=== PATIENT | male | born 1970 | race Caucasian/White ===

== ENCOUNTER → 2021-07-23 08:14 | Day surgery (SDC) | payer OTHER, SELFPAY ==
[2021-07-23 08:25] VITALS: BMI 24.4
== END ==
PROVIDERS: PCP Family Medicine; Visit Provider Internal Medicine
DX: Z53.9 Procedure and treatment not carried out, unspecified reason (principal)

== ENCOUNTER → 2021-10-01 07:19 | Outpatient (CLI) | payer OTHER, SELFPAY ==
[2021-10-01 07:31] LABS: Basophils # 0.1 K/mm3 (0-0.2); Basophils % 1.1 % (0.1-2.0); Eosinophils # 0.3 K/mm3 (0.0-0.4); Eosinophils % 3.1 % (0.1-12.0); Lymphocytes # 3.6 K/mm3 (0.7-4.5); Lymphocytes % 43.1 % (10-50); Mean Corpuscular HGB Conc 31.6 g/dL (31.8-35.4); Mean Corpuscular Volume 101.3 fl (80-94); Mean Platelet Volume 9.1 fl (7.4-10.4); Monocytes # 0.4 K/mm3 (0.1-1.0); Monocytes % 4.6 % (1.7-9.3); Neutrophils % 48.1 % (37.0-80.0); Platelet Count 307 K/mm3 (142-424); Red Blood Count 4.05 M/mm3 (4.60-6.20); Red Cell Distribution Width 14.1 % (11.5-17.5); White Blood Count 8.4 K/mm3 (4.8-10.8)
[2021-10-01 08:35] LABS: Anion Gap 10.4 mEq/L (5-15); Blood Urea Nitrogen 19 mg/dl (9-20); Calcium 9.6 mg/dl (8.4-10.2); Carbon Dioxide 29 mmol/L (22.0-30.0); Chloride 104 mmol/L (98-107); Estimated Glomerular Filt Rate 71 ml/min (>60); GFR (African American) 86 ML/MIN (>60); Glucose 169 mg/dl (74-100); Potassium 5.4 mmoL/L (3.5-5.1); Sodium 138 mmol/L (136-145)
== END ==
PROVIDERS: Urology; Visit Provider Internal Medicine
DX: Z01.812 Encounter for preprocedural laboratory examination (principal); Z11.52 Encounter for screening for COVID-19; R00.1 Bradycardia, unspecified; I73.9 Peripheral vascular disease, unspecified; R09.89 Other specified symptoms and signs involving the circulatory and respiratory systems; R20.0 Anesthesia of skin; R20.2 Paresthesia of skin; R20.9 Unspecified disturbances of skin sensation; R68.89 Other general symptoms and signs; E11.42 Type 2 diabetes mellitus with diabetic polyneuropathy; F17.200 Nicotine dependence, unspecified, uncomplicated; Z79.84 Long term (current) use of oral hypoglycemic drugs
CPT/HCPCS: 36415; 80048; 85025; C9803; U0003; U0005

== ENCOUNTER 2021-10-03 08:09 | Day surgery (SDC) | payer OTHER, SELFPAY ==
[2021-10-03] VITALS (58 sets, daily range): BP systolic 97–190; BP diastolic 52–96; PULSE 54–90; RESP 16–20; TEMP 36.8; O2SAT 97–100; BMI 26.3
--- NOTE | 2021-10-03 07:12 | IR_ITS ---
APPROVED REPORT Patient Location: Outpatient Pipe Finishing Supervisor: LORRI Cedillo RT (R) PROCEDURES Right femoral arterial access Right retrograde femoral angiogram Catheter placed in the abdominal aorta Abdominal aortography Repositioning the catheter in the abdominal aorta Bilateral iliofemoral runoff Left femoral arterial access Left retrograde femoral angiogram Bare-metal stent deployment in the right common iliac artery extending into the right external iliac artery with 2 contiguous bare-metal stents Bare-metal stent deployment to the distal left common iliac artery extending into the proximal left external iliac artery INDICATION [place] claudication class III, Peripheral artery disease, Abnormal RANDI, Atherosclerotic disease in the right common and external iliac artery, Atherosclerotic disease in the left common and external iliac artery Informed consent was obtained prior to the procedure. COMPLICATIONS NONE Estimated Blood Loss: LESS THAN 10 ML TECHNIQUE 1% lidocaine used anesthetize the right groin the right femoral was accessed via the Salinger technique and a 5 Irish sheath was placed in the right femoral artery. Because the wire would not easily traverse the iliofemoral arteries angiography in a retrograde manner was performed. An advantage wire was then used to advance through the stenosis. The pigtail catheter was advanced and abdominal aortography was performed. The catheter was then repositioned and bilateral lower femoral neck was performed. At this point 1% lidocaine was used anesthetize the left groin and the left femoral was accessed via the Salinger technique. Therapeutic heparin was administered giving a therapeutic ACT. After the 6 Irish sheath was placed a rim catheter was advanced into the distal abdominal aorta where an 8 mm x 57 mm bare-metal stent was placed in the very proximal portion of the right common iliac artery extending distally. This was deployed at 14 kristian. An additional 8 mm x 37 mm bare-metal stent was then placed distal to the first stent yet still overlapping the first stent and deployed at 12 kristian with the balloon advanced and then deployed at 14 kristian. Excellent angiographic results were obtained. Following this an 8 mm x 27 mm balloon mounted stent was then deployed at 12 kristian in the left common iliac artery extending into the left proximal external iliac artery. Excellent angiographic results were obtained. After achieving excellent angiographic results the apparatus was removed the left groin was reprepped gloves were changed sheath was removed and hemostasis was achieved using Perclose device patient was transferred to the postop holding area in stable condition for right groin sheath removal ANGIOGRAPHIC RESULTS The distal abdominal aorta is calcified with 20% distal stenosis. The right common iliac artery has an ostial 40% stenosis with a proximal 70% stenosis followed by 30% stenoses and an additional greater than 50% stenosis in the proximal portion of the right external iliac artery. The right internal iliac artery is patent. The right common femoral artery has a 40% stenosis at the insertion site. The right profunda femoris artery is widely patent and collateralizes distally into the right popliteal artery. The right superficial femoral artery is proximally subtotally occluded and then completely occludes in the mid segment and then reconstitutes at the popliteal level. The popliteal artery is a small caliber vessel with mid vessel 30% stenoses and then gives rise to the anterior and posterior tibialis arteries which are patent. There appears to be single-vessel runoff into the right foot via the posterior tibialis artery
--- NOTE | 2021-10-03 09:50 | CA_ITS ---
APPROVED REPORT EXAM: Comprehensive 2D, Doppler, and color-flow Echocardiogram Mobile Application Architect: Paige Oseguera, RT(R) Ht: 6 ft 0 in Wt: 194lbs BSA: 2.10 BP: 117/68 mmHg Indications: SOB, claudication, smoker, abn RANDI, patient had angio of bilateral LE's, patient supine on back and unable to roll over due to recent angio. Limited images 2D Dimensions Aortic Root 2.01 cm M: 3.1 - 3.7 M-Mode Dimensions RVDd 1.96 cm (0.9-2.6) LVDd 3.72 cm (3.5-5.7) LVDs 2.86 cm (3.5-5.7) IVSd 0.68 cm (0.6-1.1) PWd 0.82 cm (0.6-1.1) EF (Teich) 47.20% FS 23.10% EDV (Teich) 58.90 mL ESV (Teich) 31.10 mL LV Diastology E Decel Time 243.00 (160-240 msec) E/A Ratio 1.02 MED E' 9.70 (< 7 cm/sec) E'/MED E' Ratio 8.23 (>14) LAT E' 10.60 (<10 cm/sec) E/LAT E' Ratio 7.53 (>14) Mitral Valve MV A Velocity 79.00 (40-130 cm/s) E/A Ratio 1.02 MV Decel. Time 243.00 (160-240 ms) Left Ventricle Left atrium is normal size, left ventricle is normal size, visually estimated ejection 55% with no regional wall motion abnormality, diastolic parameters are inconclusive. Right Ventricle Right atrium and right ventricle are normal size and contractility. Aortic Valve Aortic valve is minimally thickened and fibrosed, there is no aortic stenosis or aortic insufficiency. Mitral Valve Mitral valve is grossly normal, there is trace mitral regurgitation. Tricuspid Valve Tricuspid grossly normal, there is trace tricuspid regurgitation, tricuspid regurgitation jet velocity is inadequate for calculation of the right ventricular systolic pressure. Pulmonic Valve Pulmonic valve is poorly visualized. Great Vessels Aortic root is normal size. Inferior vena cava is normal size with normal inspiratory collapse. Pericardium No significant pericardial effusion noted. Conclusion 1. Normal left ventricular size, preserved left ventricular systolic function, visually estimated ejection fraction 55% with no regional wall motion abnormality, diastolic parameters are inconclusive in the study. 2. Trace mitral and tricuspid regurgitation. 3. No significant pericardial effusion noted. 4. Inferior vena cava is normal size with normal inspiratory collapse. Electronically signed by : Bradley Lassiter MD 10/04/2021 14:52:15
[2021-10-03 14:28] LABS: CATHL Activated Clotting Time 248 SEC (74-125)
[2021-10-03 14:37] LABS: CATHL Activated Clotting Time 162 SEC (74-125)
[2021-10-03 14:38] LABS: CATHL Activated Clotting Time 230 SEC (74-125)
[2021-10-03 14:39] LABS: CATHL Activated Clotting Time 240 SEC (74-125)
--- NOTE | 2021-10-03 15:26 | HMH.PHACLD ---
Francisco Chatman has received discharge medication counseling on the following medications: PATIENT STARTED ON PLAVIX 75 MG DAILY, ATORVASTATIN 40 MG HS, ASPIRIN EC 81 MG DAILY, AND XARELTO 2.5 MG BID. PATIENT IS CURRENTLY TAKING LISINOPRIL 2.5 MG DAILY. MD NOT STARTING BETA PABLO AT THIS TIME-PERIPHERAL STENTING.
--- NOTE | 2021-10-03 18:48 | PC.NURSE ---
Sand bag removed at 1700, no more active bleeding. area soft and tender upon palpation. VSS. Pt is anxiously awaiting time of discharge. No other acute changes or complaints, will continue to monitor.
--- NOTE | 2021-10-03 21:49 | PC.NURSE ---
PT WAS D/C AT 9918
== END 2021-10-03 21:49 | disposition home or self-care (01) ==
LOC: CATHLAB 08:10 → 2ND 15:16
PROVIDERS: PCP Family Medicine; Visit Provider Internal Medicine
DX: E11.51 Type 2 diabetes mellitus with diabetic peripheral angiopathy without gangrene (principal); F17.210 Nicotine dependence, cigarettes, uncomplicated; I77.1 Stricture of artery
CPT/HCPCS: 37221; 85347; 93306; 99152; 99153; C1725; C1760; C1769; C1876; C1894; J1644; J2720; Q9966

== ENCOUNTER → 2021-10-23 10:49 | Outpatient (CLI) | payer OTHER, SELFPAY ==
--- NOTE | 2021-10-23 | CA_ITS ---
APPROVED REPORT Grazing Examiner: Paige Oseguera, RT(R) Indications Patient had lower extremity angio runoffs 10/03/21 with stents placed. Presents today with extensive bruising in the left groin. Denies palpable knot and states not tender. Risk Factors History of Lower Extremity PAD: CAD Cardiac Disease Current Smoker Findings Groin: Left Negative Measurements Rt. SFA (Prox) Lt. SFA (Prox) 66.8/ cm/s Findings No evidence of pseudoaneurysm, hematoma, or AV fistula of the left groin. Conclusion No evidence of pseudoaneurysm, hematoma, or AV fistula of the left groin. Electronically signed by : Sanjay Fan MD 10/24/2021 07:00:05
[2021-10-23 11:15] LABS: Basophils # 0.1 K/mm3 (0-0.2); Basophils % 1.1 % (0.1-2.0); Eosinophils # 0.3 K/mm3 (0.0-0.4); Hematocrit 33.3 % (42.0-52.0); Hemoglobin 11.4 g/dL (14.1-18.0); Lymphocytes % 30.4 % (10-50); Mean Corpuscular HGB Conc 34.2 g/dL (31.8-35.4); Mean Corpuscular Hemoglobin 32.3 pg (27.0-31.2); Mean Corpuscular Volume 94.5 fl (80-94); Mean Platelet Volume 8.8 fl (7.4-10.4); Monocytes # 0.3 K/mm3 (0.1-1.0); Monocytes % 4.6 % (1.7-9.3); Neutrophils # 3.8 K/mm3 (1.8-7.8); Neutrophils % 58.9 % (37.0-80.0); Platelet Count 353 K/mm3 (142-424); Red Blood Count 3.52 M/mm3 (4.60-6.20); White Blood Count 6.4 K/mm3 (4.8-10.8)
[2021-10-23 11:23] LABS: Chloride 103 mmol/L (98-107)
[2021-10-23 11:24] LABS: Potassium 5.8 mmoL/L (3.5-5.1); Sodium 137 mmol/L (136-145)
[2021-10-23 11:27] LABS: Anion Gap 12.8 mEq/L (5-15); Blood Urea Nitrogen 34 mg/dl (9-20); Calcium 10.4 mg/dl (8.4-10.2); Carbon Dioxide 27 mmol/L (22.0-30.0); Estimated Glomerular Filt Rate 59 ml/min (>60); GFR (African American) 71 ML/MIN (>60); Glucose 130 mg/dl (74-100)
[2021-10-23 14:15] LABS: Vitamin B12 574 pg/mL (239-931)
[2021-10-23 14:19] LABS: Folate 7.93 ng/mL
== END ==
PROVIDERS: Physician Assistant; PCP Family Medicine; Visit Provider Internal Medicine
DX: D53.9 Nutritional anemia, unspecified (principal)
CPT/HCPCS: 36415; 80048; 82607; 82746; 85025; 93926

== ENCOUNTER → 2021-10-25 07:55 | Outpatient (CLI) | payer OTHER, SELFPAY ==
--- NOTE | 2021-10-25 | CA_ITS ---
APPROVED REPORT Exam: Pharmacologic Technologist: Regina Hill, Ht: 6 ft 0 in Wt: 192 lbs BSA: 2.09 m2 HR: 51 bpm BP: 139/51 mmHg Medical History Medications: Aspirin,,,,, Metformin,,,,, Gabapentin,,,,, Atorvastatin,,,,, Pioglitazone,,,,, CloPIdogrel,,,,, RIvaROXABAN,,,,, Stress Test Details Test: LEXISCAN HR Resting HR: 53 bpm Max Heart Rate (APMHR): 171.325712 bpm Max HR Achieved: 109 bpm Target HR (85% APMHR): 145.648646 bpm % of APMHR: 63.74 Recovery HR: 61 bpm BP Resting BP: 139/51 mmHg Max BP: 174/64 mmHg Recovery BP: 155.0/72.0 mmHg ECG Resting ECG: sinus jeannine, otherwise normal Clinical Exercise duration: 04:00 min Highest Stage Achieved: Exercise capacity: 1.0 METs Stress ECG Conclusion 1 minute: SOA 2-3 minute: SOA, nausea, head feels woozy 4minute: N/V. SOA resolved Recovery 1 minute: Aminophylline 100mg slow IV given. Recovery 3 minute: Feels better, no more N/V. Rocovery 7 minute: Side effects gone. Symptoms: Mild chest pressure, SOA, N/V, head discomfort. Arrhythmias/Ectopy: None. ST-T Changes: 1-1.5mm horizontal ST depression inferiorly and 1mm laterally. Conclusion: EKG changes suggesting ischemia with mild CP. Myoview images reported separately. Electronically signed by : Bradley Lassiter MD 10/26/2021 09:10:31
--- NOTE | 2021-10-25 07:55 | NM_ITS ---
APPROVED REPORT Exam: Nuclear Stress Test Indication: sob..carotid bruits..tobacco user Patient Location: Outpatient Stress Tech: Regina WEST Tech:LORRI Garcia RT(R)(N) Ht: 6 ft 0 in Wt: 192 lbs HR: 53 bpm BP: 139/51 mmHg BSA: 2.09 m2 History: sob..carotid bruits..tobacco user Procedure: Patient received a 0.4 mg of intravenous Lexiscan, resting heart rate 53 bpm, resting blood pressure 139/51 mmHg, with Lexiscan maximum heart rate achived was 109 bpm which is Less than 85 % of the maximum predicted heart rate and blood pressure was 174/64 mmHg. With Lexiscan, patient denied any complaint of chest pain. pt is unable to lay on belly for prone pictures Electrocardiogram Resting electrocardiogram shows sinus rhythm, with Lexiscan there is [address] segment depression noted from the baseline EKG. The EKG portion of the Lexiscan is positive for ischemia. Cardiac Stress and Resting SPECT Images: Cardiac Stress and Resting SPECT images were obtained using technetium 99m Myoview 32.9 mCi stress and 10.29 mCi at rest. Gated SPECT for analysis of segmental wall motion and calculation of the ejection fraction also done. Cardiac stress and resting SPECT images show moderate sized partially reversible defect involving the inferior wall, computer derived ejection fraction is 47% with moderate inferior wall hypokinesis, right ventricle is normal size and contractility. Conclusion: 1. The EKG portion of the Lexiscan Myoview is positive for ischemia. 2. Scintigraphic evidence of mixed ischemia and scar involving the inferior wall as described above, computer derived ejection fraction 47% with segmental wall motion abnormality involving the inferior wall which is moderately hypokinetic. Right ventricle is normal size and contractility. 3. Abnormal Lexiscan Myoview study. Electronically signed by : Bradley Lassiter MD 10/26/2021 09:13:22
--- NOTE | 2021-10-25 09:24 | CA_ITS ---
APPROVED REPORT Aerosol Supervisor: Mayte Naranjo RVT Laterality: Bilateral Study Quality: Good Indications: bruit,dizziness Risk Factors Smoking Doppler Spectral Velocity Analysis ECA (R) 159.30/8.60 cm/s ECA (L) 75.90/8.60 cm/s dICA (R) 109.10/26.70 cm/s dICA (L) 109.10/34.20 cm/s Kary (R) 103.70/22.50 cm/s Kary (L) 83.40/23.50 cm/s pICA (R) 92.00/18.20 cm/s pICA (L) 95.20/25.70 cm/s dCCA (R) 94.10/17.10 cm/s dCCA (L) 83.40/22.50 cm/s pCCA (R) 123.00/16.00 cm/s pCCA (L) 103.70/22.50 cm/s Vert (R) 56.70/13.90 cm/s Vert (L) 118.70/28.90 cm/s ICA/CCA 1.16 ICA/CCA 1.31 Findings Study suggests 20-49% stenosis of the right internal cartoid artery. Study suggests 20-49% stenosis of the left internal cartoid artery. Antegrade flow seen bilateral vertebral arteries. Lymph nodes noted in right and left neck. Conclusion Study suggests 20-49% stenosis of the right internal cartoid artery. Study suggests 20-49% stenosis of the left internal cartoid artery. Antegrade flow seen bilateral vertebral arteries. Lymph nodes noted in right and left neck. Electronically signed by : Sanjay Fan MD 10/25/2021 17:45:15
== END ==
PROVIDERS: PCP Family Medicine; Visit Provider Nurse Practitioner Family
DX: E11.9 Type 2 diabetes mellitus without complications (principal); F17.200 Nicotine dependence, unspecified, uncomplicated; I73.9 Peripheral vascular disease, unspecified; R06.00 Dyspnea, unspecified; R09.89 Other specified symptoms and signs involving the circulatory and respiratory systems; R20.0 Anesthesia of skin; R20.2 Paresthesia of skin; R68.89 Other general symptoms and signs; Z79.84 Long term (current) use of oral hypoglycemic drugs
CPT/HCPCS: 78452; 93017; 93880; A9502; J0280; J2785

== ENCOUNTER → 2021-11-06 12:58 | Outpatient (CLI) | payer OTHER, SELFPAY ==
[2021-11-06 13:14] LABS: Basophils # 0.1 K/mm3 (0-0.2); Basophils % 0.8 % (0.1-2.0); Eosinophils # 0.3 K/mm3 (0.0-0.4); Hematocrit 34.5 % (42.0-52.0); Hemoglobin 11.5 g/dL (14.1-18.0); Lymphocytes # 2.3 K/mm3 (0.7-4.5); Lymphocytes % 28.7 % (10-50); Mean Corpuscular HGB Conc 33.2 g/dL (31.8-35.4); Mean Corpuscular Hemoglobin 32.4 pg (27.0-31.2); Mean Corpuscular Volume 97.7 fl (80-94); Mean Platelet Volume 7.9 fl (7.4-10.4); Monocytes # 0.3 K/mm3 (0.1-1.0); Monocytes % 3.7 % (1.7-9.3); Neutrophils # 5.1 K/mm3 (1.8-7.8); Neutrophils % 62.8 % (37.0-80.0); Platelet Count 274 K/mm3 (142-424); Red Blood Count 3.53 M/mm3 (4.60-6.20); White Blood Count 8.1 K/mm3 (4.8-10.8)
[2021-11-06 14:27] LABS: Anion Gap 10.2 mEq/L (5-15); Blood Urea Nitrogen 25 mg/dl (9-20); Calcium 9.5 mg/dl (8.4-10.2); Carbon Dioxide 29 mmol/L (22.0-30.0); Chloride 103 mmol/L (98-107); Estimated Glomerular Filt Rate 79 ml/min (>60); GFR (African American) 96 ML/MIN (>60); Glucose 205 mg/dl (74-100); Potassium 4.2 mmoL/L (3.5-5.1); Sodium 138 mmol/L (136-145)
== END ==
PROVIDERS: Visit Provider Physician Assistant
DX: I20.8 Other forms of angina pectoris (principal); Z01.812 Encounter for preprocedural laboratory examination; Z11.52 Encounter for screening for COVID-19; R06.00 Dyspnea, unspecified; R00.1 Bradycardia, unspecified; E11.42 Type 2 diabetes mellitus with diabetic polyneuropathy; I10 Essential (primary) hypertension; R94.39 Abnormal result of other cardiovascular function study; I73.9 Peripheral vascular disease, unspecified; F17.200 Nicotine dependence, unspecified, uncomplicated; Z79.84 Long term (current) use of oral hypoglycemic drugs
CPT/HCPCS: 80048; 85025; C9803; U0003; U0005

== ENCOUNTER 2021-11-09 08:42 | Day surgery (SDC) | payer OTHER, SELFPAY ==
[2021-11-09] VITALS (13 sets, daily range): BP systolic 98–190; BP diastolic 59–90; PULSE 45–87; RESP 16–19; TEMP 36.8; O2SAT 96–100; BMI 26.6
--- NOTE | 2021-11-09 07:12 | IR_ITS ---
APPROVED REPORT Patient Location: Outpatient Infertility Nurse: LORRI Cedillo RT (R) PROCEDURES Left heart catheterization Left ventriculogram Selective coronary angiogram Intravascular ultrasound to the LAD and left main artery Informed consent was obtained prior to the procedure. COMPLICATIONS NONE Estimated Blood Loss: LESS THAN 10 ML TECHNIQUE One percent lidocaine used to anesthetize the right anterior aspect of the wrist. The right radial artery was accessed via the Seldinger technique. A 6 [place]ian sheath was placed in the right radial artery. 2.5 mg of verapamil, 800 mcg of nitroglycerin, 1mg Lidocaine and 5000 U Heparin were given through the arterial sheath. The [place] catheter was also used to perform left heart catheterization, left ventriculogram and selective coronary angiogram. At the end the diagnostic angiogram therapeutic heparin was administered giving a therapeutic ACT and a Choice PT floppy wire was placed in the circumflex artery and a Choice PT extra-support wire placed in the LAD. Intravascular ultrasound probe was advanced. The proximal LAD had an MLA of 4.8 mm??? while the distal left main artery had an MLA of 4.6 m???. At the end of the procedure the apparatus was removed the sheath was removed and hemostasis was achieved using TR banding patient was transferred to the postop already in stable addition ANGIOGRAPHIC RESULTS The left main artery Has an ostial 30% stenosis in the distal 60 to 70% stenosis The left anterior descending artery Has an ostial proximal 40% stenosis and long diffuse 30 to 40% mid vessel stenoses The circumflex artery Is a nondominant vessel and has a proximal 40% stenosis with long tubular smooth 30 to 40% stenosis throughout the proximal to mid obtuse marginal artery The right coronary artery Is a dominant vessel has proximal 30% stenosis followed by proximal eccentric 60% stenosis followed by a mid vessel concentric 70 to 80% stenosis. The posterior descending artery has a mid vessel 80% stenosis while the posterior lateral branch has distal 80 to 90% stenoses The [place] ventriculogram reveals Dilated ventricle ejection fraction 45% The left ventricular end-diastolic pressure 20 mmHg IMPRESSION I would like to ask cardiothoracic surgeon to review the films and discuss surgical revascularization options with the patient. My tentative recommendation would be bypass surgery however given the distal nature of the right coronary artery disease if the surgeon feels percutaneous revascularization would be more appropriate I would then be glad to proceed with multivessel stenting. LDL less than 55 Immediate avoidance of tobacco products Aggressive risk factor modification Maximize antianginal medications Electronically signed by : Gunnar Dejesus MD 11/09/2021 11:04:33
== END 2021-11-09 14:11 | disposition home or self-care (01) ==
LOC: CATHLAB 08:43
PROVIDERS: PCP Family Medicine; Visit Provider Internal Medicine
DX: I25.118 Atherosclerotic heart disease of native coronary artery with other forms of angina pectoris (principal); E11.42 Type 2 diabetes mellitus with diabetic polyneuropathy; F17.210 Nicotine dependence, cigarettes, uncomplicated; I73.9 Peripheral vascular disease, unspecified; R00.1 Bradycardia, unspecified; Z79.01 Long term (current) use of anticoagulants; Z79.02 Long term (current) use of antithrombotics/antiplatelets; Z79.84 Long term (current) use of oral hypoglycemic drugs
CPT/HCPCS: 92978; 93458; 99152; 99153; C1725; C1769; J1644; Q9967

== ENCOUNTER → 2022-03-27 13:56 | Outpatient (CLI) | payer OTHER, SELFPAY ==
--- NOTE | 2022-03-27 14:03 | XR_ITS ---
FINAL REPORT CLINICAL HISTORY: chest pain, fall FINDINGS: Two views of the chest were obtained. There are postoperative changes from prior median sternotomy. The heart size and pulmonary vascularity are within normal limits. The mediastinum is normal. There is mild scarring or atelectatic in the right lung base. There is no pneumothorax. The bony thorax is intact. IMPRESSION: Mild right base scarring or atelectasis. Reviewed, Interpreted and Dictated by Axel Mijares III, MD Transcribed by Sd Hernandez Authenticated by Axel Mijares III, MD on 03/27/2022 03:19:00 PM [facility]
== END ==
PROVIDERS: PCP Family Medicine; Visit Provider Nurse Practitioner Family
DX: R06.00 Dyspnea, unspecified (principal); R07.9 Chest pain, unspecified; I25.10 Atherosclerotic heart disease of native coronary artery without angina pectoris; E11.9 Type 2 diabetes mellitus without complications; E78.5 Hyperlipidemia, unspecified; W19.XXXA Unspecified fall, initial encounter; Z79.84 Long term (current) use of oral hypoglycemic drugs
CPT/HCPCS: 71046

== ENCOUNTER → 2022-03-29 10:20 | Outpatient (CLI) | payer OTHER, SELFPAY ==
--- NOTE | 2022-03-29 10:25 | CA_ITS ---
APPROVED REPORT EXAM: Comprehensive 2D, Doppler, and color-flow Echocardiogram Surgical Rn: Parvin Sawyer RDCS Ht: 6 ft 0 in Wt: 198lbs BSA: 2.12 BP: 126/73 mmHg Indications: BRADYCARDIA,CAD,CABG 2D Dimensions LVOT 2.04 cm (M/F) 1.5-2.5 M-Mode Dimensions RVDd 2.57 cm (0.9-2.6) LA Diam 4.04 cm (1.9-4.0) LVDd 4.58 cm (3.5-5.7) Ao Diam 3.96 cm (2.0-3.7) LVDs 3.42 cm (3.5-5.7) IVSd 0.92 cm (0.6-1.1) PWd 0.80 cm (0.6-1.1) EF (Teich) 50.10% FS 25.30% EDV (Teich) 96.30 mL ESV (Teich) 48.10 mL LV Diastology E Decel Time 170.00 (160-240 msec) E/A Ratio 2.0 MED E' 6.50 (< 7 cm/sec) E'/MED E' Ratio 13.68 (>14) LAT E' 9.60 (<10 cm/sec) E/LAT E' Ratio 9.26 (>14) Mitral Valve MV E Max Jose. 89.00 (40-130 cm/s) MV A Velocity 45.00 (40-130 cm/s) E/A Ratio 1.98 MV Decel. Time 170.00 (160-240 ms) MV PHT 50.00 ms Left Ventricle Left atrium is mildly enlarged, left ventricle normal size, mild concentric left ventricular hypertrophy, estimated ejection fraction 55% with no regional wall motion abnormality, there is abnormal septal motion. Right Ventricle Right atrium and right ventricle are normal size and contractility. Aortic Valve Aortic valve is minimally thickened and fibrosed there is no aortic stenosis or aortic insufficiency. Mitral Valve Mitral valve grossly normal, there is trace mitral regurgitation Tricuspid Valve Tricuspid grossly normal, there is trace tricuspid regurgitation, tricuspid regurgitation jet velocity is inadequate for calculation of the right ventricular systolic pressure. Pulmonic Valve Pulmonic valve is poorly visualized. Great Vessels Aortic root is normal size. Inferior vena cava normal size with normal inspiratory collapse. Pericardium No significant pericardial effusion noted. Conclusion 1. Normal left ventricular size, preserved left ventricular systolic function, estimated ejection fraction 55%, there is abnormal septal motion. Diastolic parameters are inconclusive. 2. Trace mitral and tricuspid regurgitation. 3. No significant pericardial effusion. 4. Inferior vena cava is normal size with normal spectral collapse. Electronically signed by : Bradley Lassiter MD 03/29/2022 13:07:02
== END ==
PROVIDERS: PCP Family Medicine; Visit Provider Nurse Practitioner Family
DX: I25.10 Atherosclerotic heart disease of native coronary artery without angina pectoris (principal); R06.00 Dyspnea, unspecified; R07.9 Chest pain, unspecified; E11.9 Type 2 diabetes mellitus without complications; E78.5 Hyperlipidemia, unspecified; W19.XXXA Unspecified fall, initial encounter; Z79.84 Long term (current) use of oral hypoglycemic drugs
CPT/HCPCS: 93306

== ENCOUNTER → 2022-06-06 14:16 | Outpatient (CLI) | payer OTHER, SELFPAY ==
[2022-06-06 14:40] LABS: Basophils # 0.2 K/mm3 (0-0.2); Basophils % 1.9 % (0.1-2.0); Eosinophils # 0.3 K/mm3 (0.0-0.4); Eosinophils % 4.3 % (0.1-12.0); Hematocrit 43.2 % (42.0-52.0); Hemoglobin 13.8 g/dL (14.1-18.0); Lymphocytes # 3.3 K/mm3 (0.7-4.5); Lymphocytes % 41.9 % (10-50); Mean Corpuscular HGB Conc 31.8 g/dL (31.8-35.4); Mean Corpuscular Hemoglobin 31.3 pg (27.0-31.2); Mean Corpuscular Volume 98.3 fl (80-94); Monocytes # 0.4 K/mm3 (0.1-1.0); Monocytes % 4.9 % (1.7-9.3); Neutrophils # 3.7 K/mm3 (1.8-7.8); Neutrophils % 47.1 % (37.0-80.0); Platelet Count 270 K/mm3 (142-424); Red Cell Distribution Width 17.4 % (11.5-17.5); White Blood Count 7.9 K/mm3 (4.8-10.8)
[2022-06-06 14:55] LABS: Chloride 105 mmol/L (98-107); Sodium 139 mmol/L (136-145)
[2022-06-06 14:57] LABS: Blood Urea Nitrogen 25 mg/dl (9-20); Estimated Glomerular Filt Rate 46 ml/min (>60); GFR (African American) 56 ML/MIN (>60)
[2022-06-06 14:58] LABS: Alanine Aminotransferase 15 U/L (12-78); Alkaline Phosphatase 78 U/L (38-126); Anion Gap 9.6 mEq/L (5-15); Aspartate Amino Transferase 23 U/L (17-59); Bilirubin,Direct 0.1 mg/dl (0.0-0.4); Bilirubin,Indirect 0.4 mg/dL (0.0-0.9); Bilirubin,Total 0.5 mg/dl (0.2-1.3); Bilirubin,Unconjugated 0.4 mg/dL (0.0-1.1); Calcium 9.7 mg/dl (8.4-10.2); Carbon Dioxide 29 mmol/L (22.0-30.0); Cholesterol 149 mg/dl (140-200); Glucose 118 mg/dl (74-100); Potassium 4.6 mmoL/L (3.5-5.1); Triglycerides 99 mg/dl (30-150); VLDL Cholesterol 20 mg/dL (0-40)
[2022-06-06 14:59] LABS: Magnesium 1.7 mg/dl (1.6-2.3)
[2022-06-06 15:01] LABS: Albumin Level 4.4 g/dl (3.5-5.0); Total Protein,Serum 6.7 g/dl (6.3-8.2)
[2022-06-06 15:02] LABS: Chol/HDL Ratio 2.3 (1-3.5); HDL Cholesterol 64 mg/dl (40-60)
[2022-06-06 15:11] LABS: Direct LDL Cholesterol 56.92 mg/dL (100-129)
[2022-06-06 15:28] LABS: Thyroid Stimulating Hormone 5.81 uIU/mL (0.465-4.68)
== END ==
PROVIDERS: PCP Family Medicine; Visit Provider Nurse Practitioner
DX: R06.09 Other forms of dyspnea (principal); I20.8 Other forms of angina pectoris; E11.42 Type 2 diabetes mellitus with diabetic polyneuropathy; E78.2 Mixed hyperlipidemia; I73.9 Peripheral vascular disease, unspecified; F17.200 Nicotine dependence, unspecified, uncomplicated; Z95.1 Presence of aortocoronary bypass graft; Z79.84 Long term (current) use of oral hypoglycemic drugs
CPT/HCPCS: 36415; 80048; 80061; 80076; 83735; 84439; 84443; 85025

== ENCOUNTER → 2023-03-26 09:01 | Outpatient (CLI) | payer OTHER, SELFPAY ==
--- NOTE | 2023-03-26 09:05 | XR_ITS ---
FINAL REPORT CLINICAL HISTORY: lt Foot Pain FINDINGS: Left foot Three views were obtained. There is no acute fracture or dislocation. The joint spaces appear normal. No soft tissue abnormality is identified. IMPRESSION: No acute process. Reviewed, Interpreted and Dictated by Saji Angel MD Transcribed by Guillermina Faust Authenticated and [facility]
[2023-03-26 09:39] LABS: Basophils # 0.1 K/mm3 (0-0.2); Basophils % 0.6 % (0.1-2.0); Eosinophils # 0.2 K/mm3 (0.0-0.4); Eosinophils % 1.6 % (0.1-12.0); Hematocrit 45.1 % (42.0-52.0); Hemoglobin 14.6 g/dL (14.1-18.0); Lymphocytes # 4.3 K/mm3 (0.7-4.5); Lymphocytes % 45.4 % (10-50); Mean Corpuscular HGB Conc 32.2 g/dL (31.8-35.4); Mean Corpuscular Hemoglobin 31.7 pg (27.0-31.2); Mean Corpuscular Volume 98.3 fl (80-94); Mean Platelet Volume 8.4 fl (7.4-10.4); Monocytes # 0.3 K/mm3 (0.1-1.0); Monocytes % 3.1 % (1.7-9.3); Neutrophils # 4.6 K/mm3 (1.8-7.8); Neutrophils % 49.3 % (37.0-80.0); Platelet Count 244 K/mm3 (142-424); Red Blood Count 4.59 M/mm3 (4.60-6.20); Red Cell Distribution Width 13.7 % (11.5-17.5); White Blood Count 9.4 K/mm3 (4.8-10.8)
[2023-03-26 10:00] LABS: Chloride 97 mmol/L (98-107); Sodium 136 mmol/L (136-145)
[2023-03-26 10:01] LABS: Potassium 4.4 mmoL/L (3.5-5.1)
[2023-03-26 10:03] LABS: Alanine Aminotransferase 17 U/L (12-78); Albumin Level 4.4 g/dl (3.5-5.0); Albumin/Globulin Ratio 2.1 (1.1-1.8); Alkaline Phosphatase 73 U/L (38-126); Anion Gap 15.4 mEq/L (5-15); Aspartate Amino Transferase 22 U/L (17-59); Bilirubin,Total 0.8 mg/dl (0.2-1.3); Blood Urea Nitrogen 22 mg/dl (9-20); Carbon Dioxide 28 mmol/L (22.0-30.0); Estimated Glomerular Filt Rate 71 ml/min (>60); GFR (African American) 85 ML/MIN (>60); Globulin 2.1 g/dL (1.3-3.2); Total Protein,Serum 6.5 g/dl (6.3-8.2)
[2023-03-26 10:04] LABS: Calcium 9.5 mg/dl (8.4-10.2); Glucose 212 mg/dl (74-100)
[2023-03-26 10:05] LABS: Erythrocyte Sedimentation Rate 3 mm/hr (0-20)
[2023-03-26 10:09] LABS: C-Reactive Protein 0.3 mg/L (0-4)
== END ==
PROVIDERS: PCP Family Medicine; Visit Provider Nurse Practitioner Family
DX: M79.672 Pain in left foot (principal); L60.0 Ingrowing nail
CPT/HCPCS: 36415; 73630; 80053; 85025; 85651; 86140

== ENCOUNTER 2023-09-11 13:04 | Observation (INO) | payer OTHER, SELFPAY ==
[2023-09-11] VITALS (43 sets, daily range): BP systolic 117–190; BP diastolic 45–86; PULSE 45–63; RESP 16–20; TEMP 36.3–36.7; O2SAT 96–100; BMI 25.4
--- NOTE | 2023-09-11 07:09 | IR_ITS ---
APPROVED REPORT Patient Location: Outpatient Abstractor: LORRI Snyder RT (R) PROCEDURES Left heart catheterization Left ventriculogram Selective coronary angiogram Selective engagement of the left internal mammary artery to the LAD Selective engagement of the saphenous vein graft to the obtuse marginal artery Selective engagement of saphenous vein graft to the right coronary arteries posterior descending artery Intravascular lithotripsy to the mid and distal dominant right coronary artery supplying a large unbypassed posterior lateral ventricular branch INDICATION Coronary artery disease, History of coronary bypass surgery, Accelerated angina pectoris, Informed consent was obtained prior to the procedure. COMPLICATIONS None Estimated Blood Loss: Less than 10 ml TECHNIQUE One percent lidocaine used to anesthetize the right groin. The right femoral artery was accessed via the Seldinger technique and a 5 Armenian sheath was placed in the right femoral artery. A JL 4, JR4 catheter were used to perform left heart catheterization, left ventriculogram selective coronary angiography as well as selective engagement of the 2 vein grafts and the left internal mammary artery. At the end of the diagnostic angiogram therapeutic Was administered giving a therapeutic ACT and the 5 Armenian sheath was exchanged for 6 Armenian sheath. A CARSON catheter with sideholes was used to intubate the right coronary followed by Choice PT extra-support wire. A 2.5 x 12 mm shockwave lithotripsy balloon was deployed at 4, 6, 10 kristian for the full 80 pulsations reducing the stenosis. Two 2.75 x 38 mm [place] stents were placed in the ostial proximal mid and distal segment in a contiguous manner and initially deployed at 20 kristian followed by 22 and then 24 kristian to post dilate. Excellent angiographic results were obtained with SYLVESTER-3 flow being present before and after the procedure. At the end of the procedure there was excellent inline flow to a large posterior lateral ventricular branch which was not receiving retrograde filling from the posterior descending artery. At the end the procedure the apparatus was removed the sheath was taped into place patient was transferred to the postop holding in stable condition ANGIOGRAPHIC RESULTS The left main artery Is an ostial 30% stenosis and a distal 10% stenosis The left anterior descending artery Is proximally patent with 30% stenoses and then occluded at mid vessel. The circumflex artery Is nondominant gives rise to small to medium size ramus intermedius which is patent. The circumflex artery itself has 70 to 80% stenosis supplying the terminal obtuse marginal artery. The terminal obtuse marginal artery is less than 2 mm in diameter The right coronary artery Is a dominant vessel and has proximal 70% stenosis with a mid vessel calcified 80 to 90% stenosis. This supplies a large posterior lateral branch with no identifiable competitive flow from the vein graft supplying the posterior descending artery The BA[place]IST[place] ventriculogram reveals Preserved at 55% The left ventricular end-diastolic pressure 10 mmHg CARSON to LAD patent Saphenous to small obtuse marginal artery patent Saphenous to posterior descending arteries patent. There is no retrograde filling of the [place] right coronary artery or posterior lateral branch as the proximal posterior descending artery is occluded IMPRESSION Large unbypassed posterior lateral ventricular branch which was not receiving retrograde filling from the vein graft supplying the posterior descending artery Successful intravascular lithotripsy to the mid and distal dominant right coronary artery with successful drug-eluting stenting to the ostial proximal mid and distal right coronary providing inline flow to a l
[2023-09-11 08:23] LABS: Basophils # 0.1 K/mm3 (0-0.2); Basophils % 0.7 % (0.1-2.0); Eosinophils # 0.2 K/mm3 (0.0-0.4); Eosinophils % 2.1 % (0.1-12.0); Hematocrit 43.5 % (42.0-52.0); Hemoglobin 14.9 g/dL (14.1-18.0); Lymphocytes # 4.2 K/mm3 (0.7-4.5); Mean Corpuscular HGB Conc 34.4 g/dL (31.8-35.4); Mean Corpuscular Hemoglobin 34.5 pg (27.0-31.2); Mean Corpuscular Volume 100.3 fl (80-94); Mean Platelet Volume 8.5 fl (7.4-10.4); Monocytes # 0.2 K/mm3 (0.1-1.0); Monocytes % 2.5 % (1.7-9.3); Neutrophils # 3.2 K/mm3 (1.8-7.8); Neutrophils % 40.7 % (37.0-80.0); Platelet Count 219 K/mm3 (142-424); Red Blood Count 4.33 M/mm3 (4.60-6.20); Red Cell Distribution Width 13.9 % (11.5-17.5); White Blood Count 7.8 K/mm3 (4.8-10.8)
[2023-09-11 08:25] LABS: Chloride 104 mmol/L (98-107)
[2023-09-11 08:26] LABS: Potassium 4.4 mmoL/L (3.5-5.1); Sodium 138 mmol/L (136-145)
[2023-09-11 08:27] LABS: MANUAL DIFFERENTIAL MANUAL DIFFERENTIAL (MANUAL DIFF)
[2023-09-11 08:29] LABS: Anion Gap 8.4 mEq/L (5-15); Blood Urea Nitrogen 23 mg/dl (9-20); Calcium 9.1 mg/dl (8.4-10.2); Carbon Dioxide 30 mmol/L (22.0-30.0); Creatinine Clearance Estimated 105 mL/min (50-200); Estimated Glomerular Filt Rate 79 ml/min (>60); GFR (African American) 95 ML/MIN (>60); Glucose 223 mg/dl (74-100)
[2023-09-11 08:40] LABS: Eosinophils % 1 % (0-3); Lymphocytes % 47 % (10-50); Monocytes % 1 % (2-9); Neutrophils % 48 % (42-76); Total Cells Counted 100
[2023-09-11 08:41] LABS: Macrocytosis 1+; Platelet Estimate Normal; RBC Morphology Normal
[2023-09-11 14:04] LABS: CATHL Activated Clotting Time 186 SEC (74-125)
[2023-09-11 14:05] LABS: CATHL Activated Clotting Time 323 SEC (74-125)
--- NOTE | 2023-09-11 14:23 | HMH.PHAINT1 ---
Pharmacy Intervention Comments: MEDICATION RECONCILIATION COMPLETED ON PATIENT USING EXTERNAL FILL HISTORY FROM PHARMACY. -SEE LOPEZ, SANIYAD
--- NOTE | 2023-09-11 17:22 | EXP.HP ---
History of Present Illness *Admission Date: 09/11/23 *Reason for visit:: b/l arm heaviness *History of present illness: Patient is a 52-year-old male with past medical history of diabetes mellitus, CAD, status post CABG who presents to the from [facility] today for bilateral arm heaviness. According the patient he also had numbness in his right thumb. Patient mentions he had cardiac catheterization performed today, he was noted to have significant coronary artery disease as well as peripheral arterial disease. Patient was recommended for overnight admission. Patient denied fever chills nausea vomiting diarrhea constipation dysuria PFSH [facility] Disclaimer: The information contained in this section may have been updated after the patient was seen, as this information can be updated by other users. Medical History (Updated 09/11/23 @ 13:24 by Candace Rockwell RN) Abnormal ankle brachial index (RANDI) Abnormal cardiovascular stress test Atypical angina Chest pain Claudication Diabetes mellitus, type II Fall Sinus bradycardia Tobacco dependence syndrome Family History Other No significant family history Social History Smoking Status: Current every day smoker tobacco type: cigarettes packs per day: 1 alcohol intake: never current occupational status: employed Travel in the last 8 weeks: Inside the [place] household members: significant other housing: house current occupational exposures/hazards: No Review of Systems Review of Systems Review of systems (narrative): as per [facility] Meds Home Medications and Allergies Home Medications Medication Instructions Recorded Confirmed Type gabapentin 600 mg tablet 600 mg PO TID nerve pain 09/24/21 09/11/23 History aspirin 81 mg chewable tablet 81 mg PO DAILY Heart Health 10/03/21 09/11/23 History metformin 500 mg tablet 500 mg PO BIDWMEAL Diabetes 02/25/22 09/11/23 History nicotine 14 mg/24 hr daily 1 patch topical DAILY Smoking 02/25/22 09/11/23 History transdermal patch Cessation pioglitazone 30 mg tablet 30 mg PO DAILY Diabetes 02/25/22 09/11/23 History atorvastatin 40 mg tablet 40 mg PO HS Cholesterol 09/11/23 09/11/23 History carvedilol 3.125 mg tablet 3.125 mg PO BID High Blood Pressure 09/11/23 09/11/23 History clopidogrel 75 mg tablet (Plavix) 75 mg PO DAILY #30 tabs 09/11/23 Rx empagliflozin 25 mg tablet 25 mg PO DAILY Diabetes 09/11/23 09/11/23 History insulin glargine 100 unit/mL (3 10 unit SQ DAILY Diabetes 09/11/23 09/11/23 History mL) subcutaneous pen nitroglycerin 0.4 mg sublingual 0.4 mg sublingual Q5MINP PRN chest 09/11/23 09/11/23 History tablet (Nitrostat) pain rivaroxaban 2.5 mg tablet (Xarelto) 2.5 mg PO BIDWMEAL Blood Thinner 09/11/23 09/11/23 History New Prescriptions to Start Prescriptions: clopidogrel [Plavix] Gunnar Dejesus Allergies Allergy/AdvReac Type Severity Reaction Status Date / Time No Known Allergies Allergy Verified 09/11/23 08:17 Exam Data for Last 24 hours Vital signs and Labs for Last 24 Hours: Temp Pulse Resp BP Pulse Ox O2 Del Method 97.4 F L 51 L 16 168/77 H 100 Room Air 09/11/23 13:37 09/11/23 13:55 09/11/23 13:55 09/11/23 13:55 09/11/23 13:55 09/11/23 13:55 Laboratory Results - last 24 hr 09/11/23 08:00: WBC 7.8, RBC 4.33 L, Hgb 14.9, Hct 43.5, MCV 100.3 H, MCH 34.5 H, MCHC 34.4, RDW 13.9, Plt Count 219, MPV 8.5, Neut % (Auto) 40.7, Lymph % (Auto) 54.0 H, [place] % (Auto) 2.5, Eos % (Auto) 2.1, Baso % (Auto) 0.7, Neut # (Auto) 3.2, Lymph # (Auto) 4.2, [place] # (Auto) 0.2, Eos # (Auto) 0.2, Baso # (Auto) 0.1, Total Counted 100, Neutrophils % (Manual) 48, Band Neutrophils % 3.0, Lymphocytes % (Manual) 47, Monocytes % (Manual) 1 L, Eosinophils % (Manual) 1, Platelet Estimate Normal, RBC Morphology Normal, Macrocytosis 1+, Sodium 138, Potassium 4.4, Chloride
--- NOTE | 2023-09-11 19:02 | PC.NURSE ---
VS [id number] Documented by myself for A CINDY Pringle
--- NOTE | 2023-09-11 19:06 | PC.NURSE ---
Yana WARD'd per written order from [facility]
[2023-09-11 20:26] LABS: POC Glucose,Bedside 214 (70-110)
[2023-09-12] VITALS: BP 131/69; PULSE 54; PULSE 60; RESP 17; TEMP 36.8; O2SAT 97
--- NOTE | 2023-09-12 03:50 | PC.NURSE ---
HAS RESTED WELL. NO C/O SOA, CP, OR DISCOMFORT. DRSG TO RIGHT GROIN C/D/I.
[2023-09-12 04:00] VITALS: BP 104/63; PULSE 47; PULSE 63; RESP 17; TEMP 36.9; O2SAT 99; BMI 25.4
--- NOTE | 2023-09-12 04:03 | PC.NURSE ---
S/P LEFT CARDIAC CATHETERIZATION, STENTS X 2. DENIES CP, SOA, OR DISCOMFOT.
[2023-09-12 05:07] LABS: POC Glucose,Bedside 205 (70-110)
[2023-09-12 08:00] VITALS: BP 125/64; PULSE 58; PULSE 60; RESP 18; TEMP 36.9; O2SAT 100
--- NOTE | 2023-09-12 10:04 | PC.NURSE ---
SPOKE WITH PATIENT ABOUT MORNING MEDICATIONS. PATIENT STATES THAT CARDIOLOGY INSTRUCTED HIM TO HOLD CERTAIN MEDICATIONS AND HE WOULD LIKE TO WAIT FOR CARDIOLOGY TO ROUND BEFORE HE TAKES ANY ORDERED MEDICATIONS.
--- NOTE | 2023-09-12 10:56 | EXP.CARD.PN ---
Subjective Subjective Date: 09/12/23 Time: 10:45 Principal diagnosis: CAD s/p stenting Interval history: This is a 52-year-old gentleman who came into the hospital for outpatient left cardiac catheterization and was kept overnight for observation. The patient had a large unbypassed posterior lateral ventricular branch that was not receiving retrograde filling from the vein graft supplying the PDA. The patient had successful intravascular lithotripsy to the mid and distal dominant right coronary artery with successful stenting to the ostial proximal mid and distal right coronary artery providing inflow and flow to the large posterior lateral branch with 2 stents. The patient had a patent CARSON patent saphenous vein graft to the obtuse marginal artery and patent vein graft to the posterior descending artery. The patient had extensive PAD so he had to have a manual pull of his sheath. The patient stayed for observation due to his aggressive vascular disease. This morning he denies any chest pain or pressure. He states that when he woke up from his procedure he immediately felt much better. He denies any shortness of breath or edema. He denies any fever, chills, nausea, vomiting, diarrhea, PND or orthopnea. Left cardiac catheterization shows: Large unbypassed posterior lateral ventricular branch which was not receiving retrograde filling from the vein graft supplying the posterior descending artery Successful intravascular lithotripsy to the mid and distal dominant right coronary artery with successful drug-eluting stenting to the ostial proximal mid and distal right coronary providing inline flow to a large posterior lateral branch using 2 contiguous drug-eluting stents Patent CARSON to LAD Patent saphenous vein graft to obtuse marginal artery Patent saphenous vein graft to posterior descending artery Reserved ejection fraction Normal left ventricular end-diastolic pressure PLAN 1. Dual antiplatelet therapy 2. Patient has extensive peripheral artery disease with an occluded SFA. There is moderate to severe calcification at the catheter insertion site in the right femoral artery. Manual sheath pull will be required and I recommend patient be admitted to the hospital for further observation due to his aggressive vascular disease 3. LDL less than 55 to be achieved with high intensity statin 4. Avoidance of tobacco products 5. Cardiac rehabilitation 6. Aggressive risk factor modification Exam Data for Last 24 hours Vital signs and Labs for Last 24 Hours: Temp Pulse Resp BP Pulse Ox O2 Del Method 98.4 F 58 L 18 125/64 100 Room Air 09/12/23 08:00 09/12/23 08:00 09/12/23 08:00 09/12/23 08:00 09/12/23 08:00 09/12/23 09:00 Laboratory Results - last 24 hr 09/11/23 11:27: Activated Clotting Time 323 H* 09/11/23 12:15: Activated Clotting Time 186 H* D 09/11/23 20:17: POC Glucose 214 H 09/12/23 04:59: POC Glucose 205 H I & O for Last 24 hours: Intake & Output 09/09/23 09/10/23 09/11/23 09/12/23 23:59 23:59 23:59 23:59 Intake Total 360 / 720 675 / 675 Output Total 100 / 100 Balance 360 / 720 575 / 575 Weight 187 lb 6 oz 188 lb Constitutional Constitutional: no acute distress and average body habitus *Routine HEENT Exam Head: Present normocephalic and atraumatic ENT: Present mucous membranes moist *Routine Neck Exam Neck: Present supple, full ROM and normal carotid upstroke; Absent JVD, carotid bruit or lymphadenopathy *Routine Respiratory Exam Respiratory: Present CTA bilaterally, normal respiratory effort, able to speak in complete sentences and symmetric chest movement *Routine Cardiovascular Exam Cardiovascular: Present RRR, Normal S1 and Normal S2; Absent murmur or gallop *Routine Abdominal Exam Abdominal: Present soft and normoactive bowel sounds; Absent tenderness, distended or organomegaly *Routine Extremities Exam Extremities: Present full ROM, pulses intact (No groin pain or tenderness noted.)
--- NOTE | 2023-09-12 11:14 | EXP.DC.SUM ---
General Admission date:: 09/11/23 Discharge date: 09/12/23 HPI HPI HPI: Patient is a 52-year-old male with past medical history of diabetes mellitus, CAD, status post CABG who presents to the from [facility] today for bilateral arm heaviness. According the patient he also had numbness in his right thumb. Patient mentions he had cardiac catheterization performed today, he was noted to have significant coronary artery disease as well as peripheral arterial disease. Patient was recommended for overnight admission. Patient denied fever chills nausea vomiting diarrhea constipation dysuria Hospital Course Hospital Course Hospital Course: Patient was seen and evaluated at the bedside on the day of discharge. Patient is stable for discharge. Patient wishes to be discharged. All patient questions were answered and patient was given time to ask questions. Patient was discharged in stable condition. Patient is a 52-year-old male with past medical history of diabetes mellitus, CAD, status post CABG who presents to the from [employer] today for bilateral arm heaviness. According the patient he also had numbness in his right thumb. Patient mentions he had cardiac catheterization performed today, he was noted to have significant coronary artery disease as well as peripheral arterial disease. Patient was recommended for overnight admission. Assessment CAD Status post CABG Hyperlipidemia Diabetes mellitus Hypertension Hyperlipidemia PAD Patient was seen and evaluated by cardiology, patient cleared for dc, patient wishes to be discharged, follow up information given along with instuctions and medication list Exam Data for Last 24 hours Vital signs and Labs for Last 24 Hours: Temp Pulse Resp BP Pulse Ox O2 Del Method 98.4 F 58 L 18 125/64 100 Room Air 09/12/23 08:00 09/12/23 08:00 09/12/23 08:00 09/12/23 08:00 09/12/23 08:00 09/12/23 09:00 Laboratory Results - last 24 hr 09/11/23 11:27: Activated Clotting Time 323 H* 09/11/23 12:15: Activated Clotting Time 186 H* D 09/11/23 20:17: POC Glucose 214 H 09/12/23 04:59: POC Glucose 205 H I & O for Last 24 hours: Intake & Output 09/09/23 09/10/23 09/11/23 09/12/23 23:59 23:59 23:59 23:59 Intake Total 360 / 720 675 / 675 Output Total 100 / 100 Balance 360 / 720 575 / 575 Weight 84.992 kg 85.275 kg Constitutional Constitutional: no acute distress *Routine HEENT Exam Head: Present normocephalic Eye: Present EOMI and PERRL ENT: Present mucous membranes moist *Routine Neck Exam Neck: Present supple; Absent lymphadenopathy *Routine Respiratory Exam Respiratory: Present CTA bilaterally *Routine Cardiovascular Exam Cardiovascular: Present RRR *Routine Abdominal Exam Abdominal: Present soft and normoactive bowel sounds; Absent tenderness *Routine Extremities Exam Extremities: Absent cyanosis, clubbing or edema *Routine Skin Exam Skin: Present warm; Absent rash *Routine Neurological Exam Neurological: Present alert and oriented X3 Results Data Completed and Pending Labs on day of discharge: Labs from last 24 hours 09/12/23 09/11/23 09/11/23 04:59 20:17 12:15 Activated Clotting Time 186 H* D POC Glucose 205 H 214 H 09/11/23 11:27 Activated Clotting Time 323 H* POC Glucose DS: Diagnosis Discharge Diagnosis (1) CAD (coronary artery disease): Status: Chronic Code(s): I25.10 - Atherosclerotic heart disease of [place] coronary artery without angina pectoris Qualifiers: Associated angina: without angina Coronary Disease-Associated Artery/Lesion type: [place] artery [place] vs. transplanted heart: [place] heart Qualified Code(s): I25.10 - Atherosclerotic heart disease of [place] coronary artery without angina pectoris (2) PAD (peripheral artery disease): Status: Chronic Code(s): I73.9 - Peripheral vascular disease, unspecified (3) Diabetes mellitus: Status: Chronic Code
[2023-09-12 11:39] LABS: Basophils # 0.1 K/mm3 (0-0.2); Basophils % 0.6 % (0.1-2.0); Eosinophils # 0.2 K/mm3 (0.0-0.4); Eosinophils % 2.1 % (0.1-12.0); Hematocrit 47.7 % (42.0-52.0); Hemoglobin 16.1 g/dL (14.1-18.0); Lymphocytes # 2.9 K/mm3 (0.7-4.5); Lymphocytes % 36.2 % (10-50); Mean Corpuscular HGB Conc 33.8 g/dL (31.8-35.4); Mean Corpuscular Hemoglobin 34.2 pg (27.0-31.2); Mean Corpuscular Volume 101.2 fl (80-94); Mean Platelet Volume 8.8 fl (7.4-10.4); Monocytes # 0.2 K/mm3 (0.1-1.0); Monocytes % 2.8 % (1.7-9.3); Neutrophils # 4.7 K/mm3 (1.8-7.8); Neutrophils % 58.4 % (37.0-80.0); Platelet Count 231 K/mm3 (142-424); Red Blood Count 4.71 M/mm3 (4.60-6.20); Red Cell Distribution Width 13.9 % (11.5-17.5)
[2023-09-12 11:50] LABS: Chloride 102 mmol/L (98-107); Potassium 4.7 mmoL/L (3.5-5.1); Sodium 137 mmol/L (136-145)
[2023-09-12 11:53] LABS: Anion Gap 12.7 mEq/L (5-15); Blood Urea Nitrogen 25 mg/dl (9-20); Calcium 9.4 mg/dl (8.4-10.2); Carbon Dioxide 27 mmol/L (22.0-30.0); Creatinine Clearance Estimated 88 mL/min (50-200); Estimated Glomerular Filt Rate 64 ml/min (>60); GFR (African American) 77 ML/MIN (>60); Glucose 177 mg/dl (74-100)
--- NOTE | 2023-09-14 19:19 | EXP.DC.SUM ---
General Admission date:: 09/11/23 Discharge date: 09/12/23 HPI HPI HPI: Patient is a 52-year-old male with past medical history of diabetes mellitus, CAD, status post CABG who presents to the from [employer] [facility] [employer] today for bilateral arm heaviness. According the patient he also had numbness in his right thumb. Patient mentions he had cardiac catheterization performed today, he was noted to have significant coronary artery disease as well as peripheral arterial disease. Patient was recommended for overnight admission. Patient denied fever chills nausea vomiting diarrhea constipation dysuria Hospital Course Hospital Course Hospital Course: Patient was seen and evaluated at the bedside on the day of discharge. Patient is stable for discharge. Patient wishes to be discharged. All patient questions were answered and patient was given time to ask questions. Patient was discharged in stable condition. Patient is a 52-year-old male with past medical history of diabetes mellitus, CAD, status post CABG who presents to the from [employer] today for bilateral arm heaviness. According the patient he also had numbness in his right thumb. Patient mentions he had cardiac catheterization performed today, he was noted to have significant coronary artery disease as well as peripheral arterial disease. Patient was recommended for overnight admission. Assessment CAD Status post CABG Hyperlipidemia Diabetes mellitus Hypertension Hyperlipidemia PAD Patient was seen and evaluated by cardiology, patient cleared for dc, patient wishes to be discharged, follow up information given along with instuctions and medication list Exam Data for Last 24 hours Vital signs and Labs for Last 24 Hours: Temp Pulse Resp BP Pulse Ox O2 Del Method 98.4 F 58 L 18 125/64 100 Room Air 09/12/23 08:00 09/12/23 08:00 09/12/23 08:00 09/12/23 08:00 09/12/23 08:00 09/12/23 09:00 I & O for Last 24 hours: Intake & Output 09/11/23 09/12/23 09/13/23 09/14/23 23:59 23:59 23:59 23:59 Intake Total 360 / 720 675 / 675 Output Total 100 / 100 Balance 360 / 720 575 / 575 Weight 84.992 kg 85.275 kg DS: Diagnosis Discharge Diagnosis (1) CAD (coronary artery disease): Status: Chronic Code(s): I25.10 - Atherosclerotic heart disease of [place] coronary artery without angina pectoris Qualifiers: Coronary Disease-Associated Artery/Lesion type: [place] artery [place] vs. transplanted heart: [place] heart Associated angina: without angina Qualified Code(s): I25.10 - Atherosclerotic heart disease of [place] coronary artery without angina pectoris (2) PAD (peripheral artery disease): Status: Chronic Code(s): I73.9 - Peripheral vascular disease, unspecified (3) Diabetes mellitus: Status: Chronic Code(s): E11.9 - Type 2 diabetes mellitus without complications Qualifiers: Diabetes mellitus type: type 2 Diabetes mellitus group home insulin use: without intermediate project manager use Diabetes mellitus complication status: with neurologic complications Diabetes mellitus complication detail: with polyneuropathy Qualified Code(s): E11.42 - Type 2 diabetes mellitus with diabetic polyneuropathy (4) HLD (hyperlipidemia): Status: Chronic Code(s): E78.5 - Hyperlipidemia, unspecified Qualifiers: Hyperlipidemia type: mixed hyperlipidemia Qualified Code(s): E78.2 - Mixed hyperlipidemia (5) S/P CABG x 3: Status: Chronic Code(s): Z95.1 - Presence of aortocoronary bypass graft Meds Home Medications and Allergies Home Medications Medication Instructions Recorded Confirmed Type gabapentin 600 mg tablet 600 mg PO TID nerve pain 09/24/21 09/11/23 History aspirin 81 mg chewable tablet 81 mg PO DAILY Heart Health 10/03/21 09/11/23 History metformin 500 mg tablet 500 mg PO BIDWMEAL Diabetes 02/25/22 09/11/23 History nicotine 14 mg/24 hr daily 1 patch topical DAILY Smoking 02/25/22
--- NOTE | 2023-09-15 11:58 | CARE MANAGER ---
Called and spoke with patient to discuss recent discharge. Patient stated that he is doing well, no concerns voiced at time of call. Patient stated that he has started new medication and he was aware of scheduled f/u appts.
== END 2023-09-12 11:39 | disposition home or self-care (01) ==
LOC: 2ND 13:05
PROVIDERS: Internal Medicine; Nurse Practitioner Family; Admitting Provider Internal Medicine; PCP Family Medicine; Visit Provider Internal Medicine
DX: E11.9 Type 2 diabetes mellitus without complications (principal); E78.5 Hyperlipidemia, unspecified; I25.118 Atherosclerotic heart disease of native coronary artery with other forms of angina pectoris; Z95.1 Presence of aortocoronary bypass graft; F17.210 Nicotine dependence, cigarettes, uncomplicated; Z79.899 Other long term (current) drug therapy; Z79.4 Long term (current) use of insulin; I10 Essential (primary) hypertension; Z79.01 Long term (current) use of anticoagulants
CPT/HCPCS: 0715T; 36415; 80048; 82962; 85007; 85025; 85347; 92928; 93459; 99152; 99153; C1725; C1761; C1769; C1876; C1894; C9600; G0378; J1644; J2720; Q9967

== ENCOUNTER → 2023-09-21 10:24 | Outpatient (CLI) | payer OTHER, SELFPAY ==
[2023-09-21 11:05] LABS: Basophils # 0.1 K/mm3 (0-0.2); Basophils % 0.9 % (0.1-2.0); Eosinophils # 0.1 K/mm3 (0.0-0.4); Eosinophils % 1.4 % (0.1-12.0); Hematocrit 41.9 % (42.0-52.0); Hemoglobin 14.2 g/dL (14.1-18.0); Lymphocytes # 3.5 K/mm3 (0.7-4.5); Lymphocytes % 47.5 % (10-50); Mean Corpuscular HGB Conc 33.7 g/dL (31.8-35.4); Mean Corpuscular Hemoglobin 33.6 pg (27.0-31.2); Mean Corpuscular Volume 99.6 fl (80-94); Mean Platelet Volume 8.5 fl (7.4-10.4); Monocytes # 0.2 K/mm3 (0.1-1.0); Monocytes % 2.3 % (1.7-9.3); Neutrophils # 3.5 K/mm3 (1.8-7.8); Neutrophils % 47.9 % (37.0-80.0); Platelet Count 245 K/mm3 (142-424); Red Blood Count 4.21 M/mm3 (4.60-6.20); Red Cell Distribution Width 13.9 % (11.5-17.5); White Blood Count 7.4 K/mm3 (4.8-10.8)
[2023-09-21 11:33] LABS: Chloride 103 mmol/L (98-107); Potassium 4.4 mmoL/L (3.5-5.1); Sodium 138 mmol/L (136-145)
[2023-09-21 11:36] LABS: Blood Urea Nitrogen 27 mg/dl (9-20); Estimated Glomerular Filt Rate 64 ml/min (>60); GFR (African American) 77 ML/MIN (>60)
[2023-09-21 11:37] LABS: Anion Gap 11.4 mEq/L (5-15); Calcium 9.3 mg/dl (8.4-10.2); Carbon Dioxide 28 mmol/L (22.0-30.0); Glucose 222 mg/dl (74-100)
== END ==
PROVIDERS: PCP Family Medicine; Visit Provider Internal Medicine
DX: I25.10 Atherosclerotic heart disease of native coronary artery without angina pectoris (principal); Z95.5 Presence of coronary angioplasty implant and graft
CPT/HCPCS: 36415; 80048; 85025

== ENCOUNTER 2023-12-30 09:49 | Outpatient (CLI) | payer OTHER, SELFPAY ==
--- NOTE | 2023-12-30 09:49 | CA_ITS ---
FINAL REPORT TECHNIQUE: Color Doppler, duplex Doppler and pack scale sonography of the bilateral neck vasculature was performed. Velocities were measured in the carotid arteries. Stenosis evaluation based on velocity criteria. CLINICAL HISTORY: dizziness, DM, CAD, HLD, smoker, hx CO, previous carotid u/s 10/25/21 (RT ICA 20-49% stenosis, LT ICA 20-49% stenosis). COMPARISON: None FINDINGS: The peak systolic velocity of the right common carotid artery is 110 cm/sec and internal carotid artery 95 cm/sec. The diastolic velocity in the internal carotid artery is 29 cm/sec. The ICA/CCA ratio is 1. Visually, a small amount of plaque is seen. These findings are consistent with less than 50% stenosis. The external carotid artery is patent. The right vertebral artery is patent with antegrade flow. The peak systolic velocity of the left common carotid artery is 123 cm/sec and internal carotid artery 108 cm/sec. The diastolic velocity in the internal carotid artery is 30 cm/sec. The ICA/CCA ratio is 1.1. Visually, a small amount of plaque is seen. These findings are consistent with less than 50% stenosis. The external carotid artery is patent. The left vertebral artery is patent with antegrade flow. Note is made of probable thyroid nodules, recommend thyroid ultrasound for follow-up. IMPRESSION: No evidence of significant carotid stenosis. Bilateral patent vertebral arteries. If indicated, CTA or MRA could further evaluate. Thyroid nodules identified, recommend thyroid ultrasound for further evaluation. Reviewed, Interpreted and Dictated by Axel Mijares III, MD Transcribed by Monique Engle Authenticated and [facility]
== END 2023-12-30 23:59 ==
PROVIDERS: PCP Family Medicine; Visit Provider Nurse Practitioner
DX: R42 Dizziness and giddiness (principal); I25.10 Atherosclerotic heart disease of native coronary artery without angina pectoris; E78.5 Hyperlipidemia, unspecified; I73.9 Peripheral vascular disease, unspecified; Z95.1 Presence of aortocoronary bypass graft
CPT/HCPCS: 93880

== ENCOUNTER 2024-01-08 07:47 | Outpatient (CLI) | payer OTHER, SELFPAY ==
--- NOTE | 2024-01-08 07:48 | US_ITS ---
FINAL REPORT CLINICAL HISTORY: thyroid nodule COMPARISON: None FINDINGS: THYROID ULTRASOUND: The right lobe of the thyroid gland measures 4.7 x 2.2 x 1.6 cm in size. There are multiple nodules present in the right thyroid gland. The largest nodule measures 9 x 9 x 7 mm in size, is solid, and isoechoic, a TI-RADS category 3 nodule. There is a second nodule which measures 4 x 3 x 3 mm in size, cystic and solid, isoechoic, a TI-RADS category 2 nodule. There is a third nodule measuring 3 x 2 x 2 mm in size, cystic, a TI-RADS category 1 nodule. The left lobe of the thyroid measures 3.6 x 1.5 x 1.4 cm in size. The isthmus of the thyroid measures 3.4 mm in thickness. IMPRESSION: Several right thyroid nodules as described above. According to TI-RADS criteria, no follow-up is required at this time. Reviewed, Interpreted and Dictated by Axel Mijares III, MD Transcribed by Monique Engle Authenticated and [facility]
== END 2024-01-08 23:59 ==
LOC: RAD 07:48
PROVIDERS: PCP Family Medicine; Visit Provider Nurse Practitioner
DX: E04.1 Nontoxic single thyroid nodule (principal)
CPT/HCPCS: 76536

== ENCOUNTER 2024-02-04 13:34 | Outpatient (CLI) | payer OTHER, SELFPAY | END 2024-02-04 23:59 | LOC: RT 13:34 | PROVIDERS: PCP Family Medicine; Visit Provider Nurse Practitioner Family | DX: R55 Syncope and collapse (principal); I25.10 Atherosclerotic heart disease of native coronary artery without angina pectoris; I73.9 Peripheral vascular disease, unspecified; E78.2 Mixed hyperlipidemia; Z95.1 Presence of aortocoronary bypass graft; F17.210 Nicotine dependence, cigarettes, uncomplicated | CPT/HCPCS: 93270 ==

== ENCOUNTER 2024-02-17 08:25 | Outpatient (CLI) | payer OTHER, SELFPAY ==
--- NOTE | 2024-02-17 08:26 | CA_ITS ---
APPROVED REPORT EXAM: Comprehensive 2D, Doppler, and color-flow Echocardiogram Team Lead: Rose Llanes CRT Ht: 6 ft 0 in Wt: 199lbs BSA: 2.13 BP: 137/78 mmHg Indications: Chest Pain, Diabetes, Syncope, CAD, Hyperlipidemia, stents, CABG, Smoker 2D Dimensions LA Volume 29.70 mL LA Volume Index 13.60 mL/m2 (M/F) 16-34 M-Mode Dimensions RVDd 3.11 cm (0.9-2.6) LA Diam 3.87 cm (1.9-4.0) LVDd 3.79 cm (3.5-5.7) LVDs 2.79 cm (3.5-5.7) IVSd 2.43 cm (0.6-1.1) PWd 0.64 cm (0.6-1.1) EF (Teich) 52.40% FS 26.40% EDV (Teich) 61.60 mL TAPSE 1.72 (<1.7) ESV (Teich) 29.30 mL LV Diastology E Decel Time 237 (160-240 msec) E/A Ratio 1.54 MED A' 9.70 cm/s LAT A' 7.80 cm/s Aortic Valve AO Peak GR. 5.90 mmHg Mitral Valve MV A Velocity 57.0 (40-130 cm/s) E/A Ratio 1.54 Pulmonary Valve PV Peak Velocity 95.0 (50-150 cm/s) Tricuspid Valve TR P. Velocity 203.00 cm/s RAP Estimate 10.00 mmHg RVSP 26.50 mmHg Left Ventricle The left ventricle is normal size. The left ventricular systolic function is normal. The left ventricular ejection fraction is within the normal range. There is normal left ventricular wall thickness. There is normal LV segmental wall motion. The left ventricular diastolic function is normal. LVEF is 55%. Right Ventricle The right ventricle is normal size. The right ventricular systolic function is normal. Atria The left atrium size is normal. The right atrium size is normal. There is no Doppler evidence of interatrial shunt. Aortic Valve The aortic valve opens well. Trace aortic regurgitation. There is no aortic valvular stenosis. Mitral Valve The mitral valve is normal in structure. No evidence of mitral valve stenosis. Trace mitral regurgitation. Tricuspid Valve The tricuspid valve leaflets are thin and pliable. Trace tricuspid regurgitation. There is insufficient TR jet to estimate RVSP. Pulmonic Valve The pulmonary valve is normal in structure. Trace pulmonic regurgitation. Great Vessels The aortic root is normal in size. The ascending aorta is not well-visualized. IVC is normal in size and collapses >50% with inspiration. Pericardium There is no pericardial effusion. Other Information Study Quality: Fair Conclusion Normal biventricular systolic function. No significant valvular stenosis or regurgitation. Electronically signed by : Nazanin Mays MD 02/19/2024 11:44:50
== END 2024-02-17 23:59 ==
LOC: RT 08:26
PROVIDERS: PCP Family Medicine; Visit Provider Nurse Practitioner Family
DX: R55 Syncope and collapse (principal); I25.10 Atherosclerotic heart disease of native coronary artery without angina pectoris; I73.9 Peripheral vascular disease, unspecified; E78.2 Mixed hyperlipidemia; Z95.1 Presence of aortocoronary bypass graft; F17.210 Nicotine dependence, cigarettes, uncomplicated
CPT/HCPCS: 93306

== ENCOUNTER 2025-08-10 07:54 | Day surgery (SDC) | payer OTHER, SELFPAY ==
[2025-08-10] VITALS (17 sets, daily range): BP systolic 100–177; BP diastolic 51–81; PULSE 54–72; RESP 16–18; TEMP 36.6; O2SAT 92–98; BMI 24.4
--- NOTE | 2025-08-10 07:06 | IR_ITS ---
APPROVED REPORT Patient Location: Outpatient Accounting Manager Assistant Controller: Maxim Pringle, RT (R) PROCEDURES Left heart catheterization Left ventriculogram Selective coronary angiogram Selective engagement left internal mammary artery to the LAD Selective engagement of the saphenous vein graft to the circumflex artery Selective engagement of the saphenous vein graft to the right coronary INDICATION Coronary artery disease, Abnormal Myoview, Angina pectoris, History of coronary bypass surgery Informed consent was obtained prior to the procedure. COMPLICATIONS NONE Estimated Blood Loss: LESS THAN 10 ML TECHNIQUE One percent lidocaine used to anesthetize the right groin. The right femoral artery was accessed via the Seldinger technique and a 5 [place] sheath was placed in the right femoral artery. A JL 4, JR4 catheter were used to perform left heart catheterization, left ventriculogram selective coronary angiography as well as selective engagement of the 2 vein grafts and the left internal mammary artery. At the end of the procedure the patient was transferred to the postop holding area in stable condition for sheath removal. ANGIOGRAPHIC RESULTS The left main artery Normal The left anterior descending artery Has proximal 30% stenosis with a mid vessel 80% concentric stenosis. Competitive flow is identified from the CARSON graft The circumflex artery Is nondominant and appears to be occluded at mid vessel The right coronary artery Dominant ostially occluded The [place] ventriculogram reveals Preserved at 60% The left ventricular end-diastolic pressure 10 mmHg CARSON to LAD widely patent Saphenous to second obtuse marginal artery widely patent Saphenous to distal right coronary artery widely patent IMPRESSION Adequate coronary revascularization as described above Preserved ejection fraction Normal LVEDP PLAN 1. Medical management for coronary artery disease Electronically signed by : Gunnar Dejesus MD 08/10/2025 11:48:33
[2025-08-10 08:27] LABS: Hematocrit 40.1 % (42.0-52.0); Hemoglobin 13.1 g/dL (14.1-18.0); Immature Granulocytes % 0.2 %; Mean Corpuscular HGB Conc 32.7 g/dL (31.8-35.4); Mean Corpuscular Hemoglobin 33.6 pg (27.0-31.2); Mean Corpuscular Volume 102.8 fl (80-94); Nucleated Red Blood Cells % 0 %; Platelet Count 199 K/mm3 (142-424); Red Blood Count 3.90 M/mm3 (4.60-6.20); Red Cell Distribution Width-SD 53.4 fL; White Blood Count 9.5 K/mm3 (4.8-10.8)
[2025-08-10 08:44] LABS: Anion Gap 9.6 mEq/L (5-15); Blood Urea Nitrogen 22 mg/dl (9-20); Calcium 9.4 mg/dl (8.4-10.2); Carbon Dioxide 29 mmol/L (22.0-30.0); Chloride 102 mmol/L (98-107); Creatinine Clearance Estimated 90 mL/min (50-200); Creatinine,Serum 1.10 mg/dl (0.66-1.25); Estimated Glomerular Filt Rate 70 ml/min (>60); GFR (African American) 85 ML/MIN (>60); Glucose 204 mg/dl (74-100); Potassium 4.6 mmoL/L (3.5-5.1); Sodium 136 mmol/L (136-145)
[2025-08-10 08:54] LABS: RBC Morphology Normal; Total Cells Counted 100
[2025-08-10] MEDS: HEPARIN 1,000 UNITS/500ML NS (CATH LAB) 3000 UNIT IV (10:11)
[2025-08-10] MEDS: 0.9 % SODIUM CHLORIDE 500 ML 25 ML IV (10:11)
[2025-08-10] MEDS: LIDOCAINE 1% 10ML MDV 10 ML IJ (10:11)
[2025-08-10] MEDS: MIDAZOLAM HCL 1MG/ML 5ML VIAL 1 MG IV (10:26)
[2025-08-10] MEDS: FENTANYL 100MCG/2ML VIAL 50 MCG IV (10:27)
[2025-08-10] MEDS: IOPAMIDOL-370 (76%);100ML BOTTLE 50 ML IV (13:16)
== END 2025-08-10 14:05 | disposition home or self-care (01) ==
PROVIDERS: PCP Family Medicine; Visit Provider Internal Medicine
PROC: 4A023N7 Measurement of Cardiac Sampling and Pressure, Left Heart, Percutaneous Approach (ICD-10-PCS; CPT 93452; principal; 2025-08-10 07:15)
DX: I25.118 Atherosclerotic heart disease of native coronary artery with other forms of angina pectoris (principal); R93.1 Abnormal findings on diagnostic imaging of heart and coronary circulation; R94.39 Abnormal result of other cardiovascular function study; E11.42 Type 2 diabetes mellitus with diabetic polyneuropathy; E78.2 Mixed hyperlipidemia; I73.9 Peripheral vascular disease, unspecified; F17.210 Nicotine dependence, cigarettes, uncomplicated; Z79.84 Long term (current) use of oral hypoglycemic drugs; Z79.82 Long term (current) use of aspirin; Z79.4 Long term (current) use of insulin; Z79.899 Other long term (current) drug therapy; Z95.1 Presence of aortocoronary bypass graft; Z95.5 Presence of coronary angioplasty implant and graft
CPT/HCPCS: 80048; 85007; 85025; 85027; 93459; 99152; C1725; C1769; C1894; J1200; J1644; J2003; J3010; J7040; Q9967